=== PATIENT | female | born 1950 | race Two or more races ===

== ENCOUNTER 2019-03-29 08:57 | Inpatient (IN) | payer MEDICARE ==
[~2019-03-29] VITALS: Ht 160 cm; Wt 89.0 kg
[2019-03-29] MEDS ORDERED: ACETAMINOPHEN 500 MG TABLET PO ONE (09:45)
[2019-03-29] MEDS ORDERED: ONDANSETRON PF 4 MG/2 ML VIAL. IV ONE (09:45)
--- NOTE | 2019-03-29 10:18 | PHYS DOC ---
Past Medical History Past Medical History: Cancer Past Surgical History: Cancer Surgery, Hysterectomy, Knee Replacement Alcohol Use: None Drug Use: None Adult General Chief Complaint Chief Complaint: ABDOMINAL PAIN HPI HPI Patient is a 68 year old f p/w cc of abdo pain lower abdomen felt like constipated had a bm darker color than she is used to mild nausea was upstairs here caring for mom, got a little dizzy and lightheaded had bowel movement currently lower abdo discomfort mild only slowly getting better. endorses intermittent chest discomfort and sob with exertion for months " i was trying to ingore it" Review of Systems Review of Systems Constitutional: Denies fever or chills [] Eyes: Denies change in visual acuity, redness, or eye pain [] HENT: Denies nasal congestion or sore throat [] Respiratory: sob with exertion on and off for months. Musculoskeletal: Neurologic: Denies headache, focal weakness or sensory changes [] All other systems were reviewed and found to be within normal limits, except as documented in this note. Current Medications Current Medications Current Medications Medications (Trade) Dose Ordered Sig/Arthur Start Time Stop Time Status Last Admin Dose Admin Acetaminophen (Tylenol) 1,000 mg 1X ONCE 03/29/19 09:45 03/29/19 09:52 DC 03/29/19 10:12 1,000 MG Ondansetron HCl (Zofran) 4 mg 1X ONCE 03/29/19 09:45 03/29/19 09:52 DC 03/29/19 10:12 4 MG Allergies Allergies Allergies Coded Allergies Type Severity Reaction Last Updated Verified adhesive Allergy Unknown 03/29/19 Yes bacitracin Allergy Unknown 03/29/19 Yes cephalexin Allergy Unknown 03/29/19 Yes clarithromycin Allergy Unknown 03/29/19 Yes escitalopram Allergy Unknown 03/29/19 Yes lidocaine Allergy Unknown 03/29/19 Yes lisinopril Allergy Unknown 03/29/19 Yes neomycin Allergy Unknown 03/29/19 Yes polymyxin B Allergy Unknown 03/29/19 Yes pramoxine Allergy Unknown 03/29/19 Yes Physical Exam Physical Exam Constitutional: Well developed, well nourished, no acute distress, non-toxic appearance. [] HENT: Normocephalic, atraumatic, bilateral external ears normal, oropharynx moist, no oral exudates, nose normal. [] Eyes: PERRLA, EOMI, conjunctiva normal, no discharge. [] Neck: Normal range of motion, no tenderness, supple, no stridor. [] Cardiovascular:Heart rate regular rhythm, no murmur [] Lungs & Thorax: Bilateral breath sounds clear to auscultation [] Abdomen: Bowel sounds normal, soft, mild llq tenderness, no masses, no pulsatile masses. [] rectal external hemorrohid noted, there is brown stool trace on glove then later in er course pt had moderate sized melena noted. Skin: Warm, dry, no erythema, no rash. [] Back: No tenderness, no CVA tenderness. [] Extremities: No tenderness, no cyanosis, no clubbing, ROM intact, no edema. [] Neurologic: Alert and oriented X 3, normal motor function, normal sensory function, no focal deficits noted. [] Psychologic: Affect normal, judgement normal, mood normal. [] Current Patient Data Vital Signs Vital Signs Date Time Temp Pulse Resp B/P (MAP) Pulse Ox O2 Delivery O2 Flow Rate FiO2 03/29/19 09:37 97.9 78 18 101/56 (71) 91 Room Air 97.9 Lab Values Laboratory Tests Test 03/29/19 10:27 White Blood Count 9.1 x10^3/uL (4.0-11.0) Red Blood Count 4.07 x10^6/uL (3.50-5.40) Hemoglobin 12.9 g/dL (12.0-15.5) Hematocrit 38.6 % (36.0-47.0) Mean Corpuscular Volume 95 fL (79-100) Mean Corpuscular Hemoglobin 32 pg (25-35) Mean Corpuscular Hemoglobin Concent 33 g/dL (31-37) Red Cell Distribution Width 12.9 % (11.5-14.5) Platelet Count 245 x10^3/uL (140-400) Neutrophils (%) (Auto) 75 % (31-73) H Lymphocytes (%) (Auto) 16 % (24-48) L Monocytes (%) (Auto) 6 % (0-9) Eosinophils (%) (Auto) 2 % (0-3) Basophils (%) (Auto) 1 % (0-3) Neutrophils # (Auto) 6.9 x10^3/uL (1.8-7.7) Lymphocytes # (Auto) 1.5 x10^3/uL (1.0-4.8) Monocytes # (Auto) 0.6 x10^3/uL (0.0-1.1) Eosinophils # (Auto) 0.1 x10^3/uL (0.0-0.7) Basophils # (Auto) 0.1 x10^3/uL (0.0-0.2) Sodium Level 137 mmol/L (136-145) Potassium Level 4.7 mmol/L (3.5-5.1) Chloride Level 101 mmol/L (98-107) Carbon Dioxide Level 28 mmol/L (21-32) Anion Gap 8 (6-14) Blood Urea Nitrogen 46 mg/dL (7-20) H Creatinine 0.9 mg/dL (0.6-1.0) Estimated GFR (Cockcroft-Gault) 62.3 BUN/Creatinine Ratio 51 (6-20) H Glucose Level 98 mg/dL (70-99) Calcium Level 9.0 mg/dL (8.5-10.1) Total Bilirubin 0.6 mg/dL (0.2-1.0) Aspartate Amino Transferase (AST) 20 U/L (15-37) Alanine Aminotransferase (ALT) 21 U/L (14-59) Alkaline Phosphatase 66 U/L (46-116) Troponin I Quantitative 0.346 ng/mL (0.000-0.055) Total Protein 6.8 g/dL (6.4-8.2) Albumin 3.9 g/dL (3.4-5.0) Albumin/Globulin Ratio 1.3 (1.0-1.7) Lipase 136 U/L (73-393) Laboratory Tests 03/29/19 10:27 Laboratory Tests 03/29/19 10:27 EKG EKG []nsr rate normal no ischemia no stemi. Radiology/Procedures Radiology/Procedures [] Impressions: The lungs and pleural margins are clear. There is no mediastinal or hilar lymphadenopathy. The thoracic aorta appears normal. Impression: 1. No evidence of pulmonary embolism. 2. No significant findings. End impression CT Abdomen with contrast: Findings: Liver: Unremarkable Spleen: Unremarkable Pancreas: Unremarkable Adrenal Glands: Unremarkable Kidneys: Unremarkable There is no mass or lymphadenopathy. There is no free air. There is no free fluid. Impression: No acute findings. End Impression CT Pelvis with Contrast: Findings: The appendix is normal. There is moderate sigmoid diverticulosis without surrounding inflammation. The urinary bladder appears normal. There is no free fluid. There is no lymphadenopathy. Impression: No acute findings. PQRS Compliance Statement: One or more of the following individualized dose reduction techniques were utilized for this examination: 1. Automated exposure control 2. Adjustment of the mA and/or kV according to patient size 3. Use of iterative reconstruction technique Electronically signed by: Estefanía Levine III, MD (03/29/2019 12:46 PM) [facility] DICTATED and SIGNED BY: ESTEFANÍA LEVINE III, MD DATE: 03/29/19 1241 Course & Med Decision Making Course & Med Decision Making Pertinent Labs and Imaging studies reviewed. (See chart for details) []60-year-old female with a prior episode of breast cancer not currently on treatment for that hypertension hypothyroidism presenting after a episode of lightheadedness with some nausea and lower abdominal discomfort had episode of melena in the emergency room EKG normal blood pressure greater than [address] chest abdomen pelvis was negative acute. There is diverticulosis on CT scan. Patient did have oxygen saturation in the mid to high 80s 86- 88% on room air, patient is a smoker no pe seen. noted trop could be strain from the gi bleed, could be takutsubo? given caring for sick mother in hospital. given gi bleed will hold off on anticoagulation at this time. d/w anne-marie shannon ordered protonix iv fluids type and screen. Dragon Disclaimer Dragon Disclaimer This electronic medical record was generated, in whole or in part, using a voice recognition dictation system. Departure Departure Impression: Primary Impression: NSTEMI (non-ST elevated myocardial infarction) Additional Impression: GI bleed Disposition: ADMITTED INPATIENT Admitting Physician: HIMS Condition: GUARDED Referrals: NO PCP (PCP) Problem Qualifiers SHONNA DELUNA MD Mar 29, 2019 10:18
[2019-03-29 10:39] LABS: BASO # 0.1 x10^3/uL (0.0-0.2); BASO % 1 % (0-3); EOS # 0.1 x10^3/uL (0.0-0.7); EOS % 2 % (0-3); HEMATOCRIT 38.6 % (36.0-47.0); HEMOGLOBIN 12.9 g/dL (12.0-15.5); LYMPH # 1.5 x10^3/uL (1.0-4.8); LYMPH % 16 % (24-48); MEAN CORPUSCULAR HEMOGLOBIN 32 pg (25-35); MEAN CORPUSCULAR HGB CONC 33 g/dL (31-37); MEAN CORPUSCULAR VOLUME 95 fL (79-100); MONO # 0.6 x10^3/uL (0.0-1.1); MONO % 6 % (0-9); NEUT # 6.9 x10^3/uL (1.8-7.7); NEUT % 75 % (31-73); PLATELET COUNT 245 x10^3/uL (140-400); RED BLOOD COUNT 4.07 x10^6/uL (3.50-5.40); RED CELL DISTRIBUTION WIDTH 12.9 % (11.5-14.5); WHITE BLOOD COUNT 9.1 x10^3/uL (4.0-11.0)
[2019-03-29 11:02] LABS: CREATININE 0.9 mg/dL (0.6-1.0); GFR 62.3; POTASSIUM 4.7 mmol/L (3.5-5.1)
[2019-03-29 11:08] LABS: BILIRUBIN,URINE NEGATIVE (NEG); CLARITY,URINE CLEAR; COLOR,URINE YELLOW; NITRITE,URINE NEGATIVE (NEG); PROTEIN,URINE NEGATIVE (NEG-TRACE); UROBILINOGEN,URINE 0.2 mg/dL (0.2 mg/dL)
[2019-03-29 11:08] LABS: ALBUMIN 3.9 g/dL (3.4-5.0); ALBUMIN/GLOBULIN RATIO 1.3 (1.0-1.7); TOTAL BILIRUBIN 0.6 mg/dL (0.2-1.0); TOTAL PROTEIN 6.8 g/dL (6.4-8.2)
[2019-03-29 11:17] LABS: HYALINE CASTS, URINE MODERATE /HPF; SQUAMOUS EPITHELIAL CELL,UR MANY /LPF
[2019-03-29 11:18] LABS: BACTERIA,URINE MANY /HPF (0-FEW)
[2019-03-29] MEDS ORDERED: IV NORMAL SALINE 1000ML BAG 1,000 ML IV ONE (12:00)
[2019-03-29] MEDS ORDERED: PANTOPRAZOLE IV PUSH 40 MG VIAL. IVP ONE (12:00)
[2019-03-29] MEDS: PANTOPRAZOLE SODIUM IV DRIP 80 MG in IV NORMAL SALINE 100ML 100 ML IV SCH ×2 (12:00→21:42)
[2019-03-29 12:09] LABS: FECAL OB PT POSITIVE (NEG)
[2019-03-29] MEDS ORDERED: CONTRAST GIVEN. MC PRN (12:15)
[2019-03-29] MEDS ORDERED: IOHEXOL 350 MG/ML 100 ML VIAL. IV ONE (12:15)
[2019-03-29] MEDS ORDERED: fentaNYL PF VIAL 100 MCG/2 ML VIAL IV PRN (12:30)
--- NOTE | 2019-03-29 12:49 | RAD ---
CTA Chest and CT abdomen and pelvis with contrast: Clinical History: Chest pain and lower abdominal pain. Axial helical images of the chest abdomen and pelvis were obtained after the administration of 90 cc of IV Omni 350 contrast. Oral contrast was not utilized. CTA chest with contrast: Images of the chest were timed appropriately for a pulmonary arterial study. Conventional axial reconstruction was performed in addition to coronal, sagittal and bilateral oblique MIP (maximum intensity projection). This study was ordered to detect possible pulmonary embolism. FINDINGS: There are no filling defects to suggest pulmonary embolism. The lungs and pleural margins are clear. There is no mediastinal or hilar lymphadenopathy. The thoracic aorta appears normal. Impression: 1. No evidence of pulmonary embolism. 2. No significant findings. End impression CT Abdomen with contrast: Findings: Liver: Unremarkable Spleen: Unremarkable Pancreas: Unremarkable Adrenal Glands: Unremarkable Kidneys: Unremarkable There is no mass or lymphadenopathy. There is no free air. There is no free fluid. Impression: No acute findings. End Impression CT Pelvis with Contrast: Findings: The appendix is normal. There is moderate sigmoid diverticulosis without surrounding inflammation. The urinary bladder appears normal. There is no free fluid. There is no lymphadenopathy. Impression: No acute findings. PQRS Compliance Statement: One or more of the following individualized dose reduction techniques were utilized for this examination: 1. Automated exposure control 2. Adjustment of the mA and/or kV according to patient size 3. Use of iterative reconstruction technique Electronically signed by: Chris Levine III, MD (03/29/2019 12:46 PM) [facility]
--- NOTE | 2019-03-29 13:19 | PDOC1 ---
History and Physical Date of Admission Date of Admission DATE: 03/29/19 TIME: 13:10 Identification/Chief Complaint Chief Complaint Abdominal pain Source Source: Chart review, Patient History of Present Illness History of Present Illness Ms Jones is a 68yo F w/ PMHx hypothyroidism, HTN, right breast cancer 2011 in remission (s/p lumpectomy x2, radiation, and chemotherapy) who p/w abdominal pain in periumbilical area and left lower quadrant while visiting another patient here in the hospital she felt this upon awakening. Has associated nausea, dizziness, lightheadedness and notes melanotic stools as of this morning. Pain is colicky in waves in her suprapubic area radiating into her lower back and into her epigastrium. Notes this began while she was caring for her mother currently here at [facility]. She does take ASA and naproxen 550mg. In ED notably had negative CT Chest/abdomen/pelvis with contrast. Has troponin 0.346, BUN 46 and fecal occult positive. Otherwise CBC and CMP were WNL. EKG NSR, no ischemic findings. She was started on IV protonix, placed NPO with GI and cardiology consulted and will be admitted for further workup and care in the ICU. Past Medical History Cardiovascular: HTN Pulmonary: No pertinent hx GI: No pertinent hx Heme/Onc: Cancer (right breast cancer 2011 in remission (s/p lumpectomy x2, radiation, and chemotherapy)) Hepatobiliary: No pertinent hx Psych: No pertinent hx Rheumatologic: No pertinent hx Infectious disease: No pertinent hx ENT: No pertinent hx Endocrine: Hypothyroidism Dermatology: No pertinent hx Past Surgical History Past Surgical History: Breast Biopsy, Total hip replacement (Right hip), Tubal Ligation, Hysterectomy Family History Family History: High Cholestrol, Hypertension Social History Smoke: No ALCOHOL: none Drugs: None Current Medications Current Medications Current Medications Acetaminophen (Tylenol) 1,000 mg 1X ONCE PO Last administered on 03/29/19at 10:12; Start 03/29/19 at 09:45; Stop 03/29/19 at 09:52; Status DC Ondansetron HCl (Zofran) 4 mg 1X ONCE IV Last administered on 03/29/19at 10:12; Start 03/29/19 at 09:45; Stop 03/29/19 at 09:52; Status DC Pantoprazole Sodium 80 mg/ Sodium Chloride 100 ml @ 10 mls/hr Q10H IV Last administered on 03/29/19at 12:00; Start 03/29/19 at 12:00 Pantoprazole Sodium (PROTONIX VIAL for IV PUSH) 40 mg 1X ONCE IVP Last administered on 03/29/19at 12:00; Start 03/29/19 at 12:00; Stop 03/29/19 at 12:01; Status DC Sodium Chloride 1,000 ml @ 1,000 mls/hr 1X ONCE IV Last administered on 03/29/19at 12:00; Start 03/29/19 at 12:00; Stop 03/29/19 at 12:59; Status DC Iohexol (Omnipaque 350 Mg/ml) 90 ml 1X ONCE IV Last administered on 03/29/19at 12:37; Start 03/29/19 at 12:15; Stop 03/29/19 at 12:16; Status DC Info (CONTRAST GIVEN -- Rx MONITORING) 1 each PRN DAILY PRN MC SEE COMMENTS; Start 03/29/19 at 12:15; Stop 03/31/19 at 12:14 Fentanyl Citrate (Fentanyl 2ml Vial) 50 mcg PRN Q1HR PRN IV PAIN; Start 03/29/19 at 12:30; Stop 03/30/19 at 12:29 Sodium Chloride 1,000 ml @ 75 mls/hr [id number] IV ; Start 03/29/19 at 12:29; Stop 03/30/19 at 12:28 Allergies Allergies: Coded Allergies: adhesive (Verified Allergy, Unknown, 03/29/19) bacitracin (Verified Allergy, Unknown, 03/29/19) cephalexin (Verified Allergy, Unknown, 03/29/19) clarithromycin (Verified Allergy, Unknown, 03/29/19) escitalopram (Verified Allergy, Unknown, 03/29/19) lidocaine (Verified Allergy, Unknown, 03/29/19) lisinopril (Verified Allergy, Unknown, 03/29/19) neomycin (Verified Allergy, Unknown, 03/29/19) polymyxin B (Verified Allergy, Unknown, 03/29/19) pramoxine (Verified Allergy, Unknown, 03/29/19) ROS General: YES: Fatigue, Malaise, Appetite; No: Chills, Night Sweats, Other PSYCHOLOGICAL ROS: No: Anxiety, Behavioral Disorder, Concentration difficultie, Decreased libido, Depression, Disorientation, Hallucinations, Hostility, Irritablity, Memory difficulties, Mood Swings, Obsessive thoughts, Physical abuse, Sexual abuse, Sleep disturbances, Suicidal ideation, Other Eyes: No Blurry vision, No Decreased vision, No Double vision, No Dry eyes, No Excessive tearing, No Eye Pain, No Itchy Eyes, No Loss of vision, No Photo phobia, No Scotomata, No Uses contacts, No Uses glasses, No Other HEENT: No: Heacaches, Visual Changes, Hearing change, Nasal congestion, Nasal discharge, Oral lesions, Sinus pain, Sore Throat, Epistaxis, Sneezing, Snoring, Tinnitus, Vertigo, Vocal changes, Other ALLERGY AND IMMUNOLOGY: No: Hives, Insect Bite Sensitivity, Itchy/Watery Eyes, Nasal Congestion, Post Nasal Drip, Seasonal Allergies, Other Hematological and Lymphatic: No: Bleeding Problems, Blood Clots, Blood Transfusions, Brusing, Night Sweats, Pallor, Swollen Lymph Nodes, Other ENDOCRINE: No: Breast Changes, Galactorrhea, Hair Pattern Changes, Hot Flashes, Malaise/lethargy, Mood Swings, Palpitations, Polydipsia/polyuria, Skin Changes, Temperature Intolerance, Unexpected Weight Changes, Other Breast: No New/Changing Breast Lumps, No Nipple changes, No Nipple discharge, No Other Respiratory: No: Cough, Hemoptysis, Orthopnea, Pleuritic Pain, Shortness of breath, SOB with excertion, Sputum Changes, Stridor, Tachypnea, Wheezing, Other Cardiovascular: No Chest Pain, No Palpitations, No Orthopnea, No Paroxysmal Noc. Dyspnea, No Edema, No Lt Headedness, No Other Gastrointestinal: Yes Nausea, Yes Abdominal Pain, Yes Melena; No Vomiting, No Diarrhea, No Constipation, No Hematochezia, No Other Genitourinary: No Dysuria, No Frequency, No Incontinence, No Hematuria, No Retention, No Discharge, No Urgency, No Pain, No Flank Pain, No Other, No , No , No , No , No , No , No Musculoskeletal: No Gait Disturbance, No Joint Pain, No Joint Stiffness, No Joint Swelling, No Muscle Pain, No Muscular Weakness, No Pain In:, No Swelling In:, No Other Neurological: No Behavorial Changes, No Bowel/Bladder ControlChng, No Confusion, No Dizziness, No Gait Disturbance, No Headaches, No Impaired Coord/balance, No Memory Loss, No Numbness/Tingling, No Seizures, No Speech Problems, No Tremors, No Visual Changes, No Weakness, No Other Skin: No Dry Skin, No Eczema, No Hair Changes, No Lumps, No Mole Changes, No Mo ttling, No Nail Changes, No Pruritus, No Rash, No Skin Lesion Changes, No Other, No Acne Physical Exam General: Alert, Oriented X3, Cooperative, No acute distress HEENT: Atraumatic, PERRLA, EOMI, Mucous membr. moist/pink Lungs: Clear to auscultation, Normal air movement Heart: S1S2, RRR, no thrills, no rubs, no gallops, no murmurs Abdomen: Normal bowel sounds, Soft, No hepatosplenomegaly, No masses, Other (epigastric and suprapubic tenderness) Rectal Exam: other (no hemorrhoids or masses, dark melanotic stool) Extremities: No clubbing, No cyanosis, No edema, Normal pulses, No tenderness/swelling Skin: No rashes, No breakdown, No significant lesion Neuro: Normal gait, Normal speech, Strength at 5/5 X4 ext, Normal tone, Sensation intact, Cranial nerves 3-12 NL, Reflexes 2+ Psych/Mental Status: Mental status NL, Mood NL Vitals Vitals Vital Signs Date Time Temp Pulse Resp B/P (MAP) Pulse Ox O2 Delivery O2 Flow Rate FiO2 03/29/19 09:37 97.9 78 18 101/56 (71) 91 Room Air 97.9 Labs Labs Laboratory Tests Test 03/29/19 10:27 03/29/19 10:35 03/29/19 11:52 White Blood Count 9.1 x10^3/uL (4.0-11.0) Red Blood Count 4.07 x10^6/uL (3.50-5.40) Hemoglobin 12.9 g/dL (12.0-15.5) Hematocrit 38.6 % (36.0-47.0) Mean Corpuscular Volume 95 fL (79-100) Mean Corpuscular Hemoglobin 32 pg (25-35) Mean Corpuscular Hemoglobin Concent 33 g/dL (31-37) Red Cell Distribution Width 12.9 % (11.5-14.5) Platelet Count 245 x10^3/uL (140-400) Neutrophils (%) (Auto) 75 % (31-73) Lymphocytes (%) (Auto) 16 % (24-48) Monocytes (%) (Auto) 6 % (0-9) Eosinophils (%) (Auto) 2 % (0-3) Basophils (%) (Auto) 1 % (0-3) Neutrophils # (Auto) 6.9 x10^3/uL (1.8-7.7) Lymphocytes # (Auto) 1.5 x10^3/uL (1.0-4.8) Monocytes # (Auto) 0.6 x10^3/uL (0.0-1.1) Eosinophils # (Auto) 0.1 x10^3/uL (0.0-0.7) Basophils # (Auto) 0.1 x10^3/uL (0.0-0.2) Sodium Level 137 mmol/L (136-145) Potassium Level 4.7 mmol/L (3.5-5.1) Chloride Level 101 mmol/L (98-107) Carbon Dioxide Level 28 mmol/L (21-32) Anion Gap 8 (6-14) Blood Urea Nitrogen 46 mg/dL (7-20) Creatinine 0.9 mg/dL (0.6-1.0) Estimated GFR (Cockcroft-Gault) 62.3 BUN/Creatinine Ratio 51 (6-20) Glucose Level 98 mg/dL (70-99) Calcium Level 9.0 mg/dL (8.5-10.1) Total Bilirubin 0.6 mg/dL (0.2-1.0) Aspartate Amino Transf (AST/SGOT) 20 U/L (15-37) Alanine Aminotransferase (ALT/SGPT) 21 U/L (14-59) Alkaline Phosphatase 66 U/L (46-116) Troponin I Quantitative 0.346 ng/mL (0.000-0.055) Total Protein 6.8 g/dL (6.4-8.2) Albumin 3.9 g/dL (3.4-5.0) Albumin/Globulin Ratio 1.3 (1.0-1.7) Lipase 136 U/L (73-393) Urine Collection Type Unknown Urine Color Yellow Urine Clarity Clear Urine pH 6.0 Urine Specific [place] 1.020 Urine Protein Negative mg/dL (NEG-TRACE) Urine Glucose (UA) Negative mg/dL (NEG) Urine Ketones (Stick) Negative mg/dL (NEG) Urine Blood Negative (NEG) Urine Nitrite Negative (NEG) Urine Bilirubin Negative (NEG) Urine Urobilinogen Dipstick 0.2 mg/dL (0.2 mg/dL) Urine Leukocyte Esterase Trace (NEG) Urine RBC 1-2 /HPF (0-2) Urine WBC 1-4 /HPF (0-4) Urine Squamous Epithelial Cells Many /LPF Urine Bacteria Many /HPF (0-FEW) Urine Hyaline Casts Moderate /HPF Urine Mucus Mod /LPF Stool Occult Blood Positive (NEG) Laboratory Tests Test 03/29/19 10:27 03/29/19 10:35 03/29/19 11:52 White Blood Count 9.1 x10^3/uL (4.0-11.0) Red Blood Count 4.07 x10^6/uL (3.50-5.40) Hemoglobin 12.9 g/dL (12.0-15.5) Hematocrit 38.6 % (36.0-47.0) Mean Corpuscular Volume 95 fL (79-100) Mean Corpuscular Hemoglobin 32 pg (25-35) Mean Corpuscular Hemoglobin Concent 33 g/dL (31-37) Red Cell Distribution Width 12.9 % (11.5-14.5) Platelet Count 245 x10^3/uL (140-400) Neutrophils (%) (Auto) 75 % (31-73) Lymphocytes (%) (Auto) 16 % (24-48) Monocytes (%) (Auto) 6 % (0-9) Eosinophils (%) (Auto) 2 % (0-3) Basophils (%) (Auto) 1 % (0-3) Neutrophils # (Auto) 6.9 x10^3/uL (1.8-7.7) Lymphocytes # (Auto) 1.5 x10^3/uL (1.0-4.8) Monocytes # (Auto) 0.6 x10^3/uL (0.0-1.1) Eosinophils # (Auto) 0.1 x10^3/uL (0.0-0.7) Basophils # (Auto) 0.1 x10^3/uL (0.0-0.2) Sodium Level 137 mmol/L (136-145) Potassium Level 4.7 mmol/L (3.5-5.1) Chloride Level 101 mmol/L (98-107) Carbon Dioxide Level 28 mmol/L (21-32) Anion Gap 8 (6-14) Blood Urea Nitrogen 46 mg/dL (7-20) Creatinine 0.9 mg/dL (0.6-1.0) Estimated GFR (Cockcroft-Gault) 62.3 BUN/Creatinine Ratio 51 (6-20) Glucose Level 98 mg/dL (70-99) Calcium Level 9.0 mg/dL (8.5-10.1) Total Bilirubin 0.6 mg/dL (0.2-1.0) Aspartate Amino Transf (AST/SGOT) 20 U/L (15-37) Alanine Aminotransferase (ALT/SGPT) 21 U/L (14-59) Alkaline Phosphatase 66 U/L (46-116) Troponin I Quantitative 0.346 ng/mL (0.000-0.055) Total Protein 6.8 g/dL (6.4-8.2) Albumin 3.9 g/dL (3.4-5.0) Albumin/Globulin Ratio 1.3 (1.0-1.7) Lipase 136 U/L (73-393) Urine Collection Type Unknown Urine Color Yellow Urine Clarity Clear Urine pH 6.0 Urine Specific [place] 1.020 Urine Protein Negative mg/dL (NEG-TRACE) Urine Glucose (UA) Negative mg/dL (NEG) Urine Ketones (Stick) Negative mg/dL (NEG) Urine Blood Negative (NEG) Urine Nitrite Negative (NEG) Urine Bilirubin Negative (NEG) Urine Urobilinogen Dipstick 0.2 mg/dL (0.2 mg/dL) Urine Leukocyte Esterase Trace (NEG) Urine RBC 1-2 /HPF (0-2) Urine WBC 1-4 /HPF (0-4) Urine Squamous Epithelial Cells Many /LPF Urine Bacteria Many /HPF (0-FEW) Urine Hyaline Casts Moderate /HPF Urine Mucus Mod /LPF Stool Occult Blood Positive (NEG) Images Images CT chest with contrast - There are no filling defects to suggest pulmonary embolism. The lungs and pleural margins are clear. There is no mediastinal or hilar lymphadenopathy. The thoracic aorta appears normal. Impression: 1. No evidence of pulmonary embolism. 2. No significant findings. CT Abdomen with contrast: Liver: Unremarkable Spleen: Unremarkable Pancreas: Unremarkable Adrenal Glands: Unremarkable Kidneys: Unremarkable There is no mass or lymphadenopathy. There is no free air. There is no free fluid. Impression: No acute findings. CT Pelvis with Contrast: The appendix is normal. There is moderate sigmoid diverticulosis without surrounding inflammation. The urinary bladder appears normal. There is no free fluid. There is no lymphadenopathy. Impression: No acute findings. VTE Prophylaxis Ordered VTE Prophylaxis Devices: Yes VTE Pharmacological Prophylaxi: Contraindicated Assessment/Plan Assessment/Plan A/P: Melanotic stool - concerning with elevated BUN and abdominal pain she may have an occult UGIB, consulted GI. NPO, IV protonix GTT. ICU admit. Hold blood thinners Uremia - as above likely from UGIB, may be dehydrated as well, will order IVF Elevated troponin - will trend. Likely demand ischemia possibly from GI bleed. Cardiology consulted by ED Hypothyroidism - acquired, on 75mcg levothyroxine HTN - cont meds Right breast cancer 2011 - in remission (s/p lumpectomy x2, radiation, and chemotherapy) FEN - NPO. If no procedures planned tonight I am ok with clear liquid diet, patient requests melissa childress PPX - Protonix GTT FULL CODE Dispo - ICU for concern for UGIB JEAN-PAUL RIVERA MD Mar 29, 2019 13:19
[2019-03-29 13:47] VITALS: BP 122/73
[2019-03-29] MEDS ORDERED: SIMV20TA3 PO (14:39)
[2019-03-29] MEDS ORDERED: LOSA1TAB19 PO (14:39)
[2019-03-29] MEDS ORDERED: SERT100T PO (14:39)
[2019-03-29] MEDS ORDERED: LEVO75TA5 PO (14:39)
[2019-03-29] MEDS ORDERED: LORA10TA3 PO (14:39)
[2019-03-29] MEDS ORDERED: NAPR500T8 PO (14:39)
[2019-03-29 15:00] VITALS: BP 115/64
[2019-03-29] MEDS ORDERED: ONDANSETRON PF 4 MG/2 ML VIAL. IVP PRN (15:00)
[2019-03-29] MEDS ORDERED: MORPHINE SULFATE 2 MG/ML VIAL. IV PRN (15:00)
--- NOTE | 2019-03-29 15:20 | PDOC2 ---
GI CONSULT Reason For Consult: heme positive stool HPI: HPI: 68yo F w/ PMHx hypothyroidism, HTN, right breast cancer 2011 in remission (s/p lumpectomy x2, radiation, and chemotherapy) who p/w abdominal pain in periumbilical area and left lower quadrant while visiting another patient here in the hospital she felt this upon awakening. Has associated nausea, dizziness, lightheadedness and notes melanotic stools as of this morning. Pain is colicky in waves in her suprapubic area radiating into her lower back and into her epigastrium. Notes this began while she was caring for her mother currently here at [facility]. She does take ASA and naproxen 550mg since her hip replacement 04/2018. She takes the Naproxen 1-2 times daily In ED notably had negative CT Chest/abdomen/pelvis with contrast. Has troponin 0.346, BUN 46 and fecal occult positive. Otherwise CBC and CMP were WNL. EKG NSR, no ischemic findings. She was started on IV protonix, placed NPO with GI and cardiology consulted and will be admitted for further workup and care in the ICU. PMH: PMH: Past Medical History Cardiovascular: HTN Pulmonary: No pertinent hx GI: Colon polyps on colonoscopy with Dr Rehana Beauchamp/Onc: Cancer (right breast cancer 2011 in remission (s/p lumpectomy x2, radiation, and chemotherapy)) Hepatobiliary: No pertinent hx Psych: No pertinent hx Rheumatologic: No pertinent hx Infectious disease: No pertinent hx ENT: No pertinent hx Endocrine: Hypothyroidism Dermatology: No pertinent hx Past Surgical History Past Surgical History: Breast Biopsy, Total hip replacement (Right hip), Tubal Ligation, Hysterectomy Family History Family History: High Cholestrol, Hypertension Social History Smoke: No ALCOHOL: none Drugs: None Current Medications Current Medications Current Medications Acetaminophen (Tylenol) 1,000 mg 1X ONCE PO Last administered on 03/29/19at 10:12; Start 03/29/19 at 09:45; Stop 03/29/19 at 09:52; Status DC Ondansetron HCl (Zofran) 4 mg 1X ONCE IV Last administered on 03/29/19at 10:12; Start 03/29/19 at 09:45; Stop 03/29/19 at 09:52; Status DC Pantoprazole Sodium 80 mg/ Sodium Chloride 100 ml @ 10 mls/hr Q10H IV Last administered on 03/29/19at 12:00; Start 03/29/19 at 12:00 Pantoprazole Sodium (PROTONIX VIAL for IV PUSH) 40 mg 1X ONCE IVP Last administered on 03/29/19at 12:00; Start 03/29/19 at 12:00; Stop 03/29/19 at 12:01; Status DC Sodium Chloride 1,000 ml @ 1,000 mls/hr 1X ONCE IV Last administered on 03/29/19at 12:00; Start 03/29/19 at 12:00; Stop 03/29/19 at 12:59; Status DC Iohexol (Omnipaque 350 Mg/ml) 90 ml 1X ONCE IV Last administered on 03/29/19at 12:37; Start 03/29/19 at 12:15; Stop 03/29/19 at 12:16; Status DC Info (CONTRAST GIVEN -- Rx MONITORING) 1 each PRN DAILY PRN MC SEE COMMENTS; Start 03/29/19 at 12:15; Stop 03/31/19 at 12:14 Fentanyl Citrate (Fentanyl 2ml Vial) 50 mcg PRN Q1HR PRN IV PAIN; Start 03/29/19 at 12:30; Stop 03/30/19 at 12:29 Sodium Chloride 1,000 ml @ 75 mls/hr [id number] IV ; Start 03/29/19 at 12:29; Stop 03/30/19 at 12:28 Allergies Allergies: Coded Allergies: adhesive (Verified Allergy, Unknown, 03/29/19) bacitracin (Verified Allergy, Unknown, 03/29/19) cephalexin (Verified Allergy, Unknown, 03/29/19) clarithromycin (Verified Allergy, Unknown, 03/29/19) escitalopram (Verified Allergy, Unknown, 03/29/19) lidocaine (Verified Allergy, Unknown, 03/29/19) lisinopril (Verified Allergy, Unknown, 03/29/19) neomycin (Verified Allergy, Unknown, 03/29/19) polymyxin B (Verified Allergy, Unknown, 03/29/19) pramoxine (Verified Allergy, Unknown, 03/29/19) Social History: Smoke: No ALCOHOL: none Drugs: None ROS: ROS General: YES: Fatigue, Malaise, Appetite; No: Chills, Night Sweats, Other PSYCHOLOGICAL ROS: No: Anxiety, Behavioral Disorder, Concentration difficultie, Decreased libido, Depression, Disorientation, Hallucinations, Hostility, Irritablity, Memory difficulties, Mood Swings, Obsessive thoughts, Physical abuse, Sexual abuse, Sleep disturbances, Suicidal ideation, Other Eyes: No Blurry vision, No Decreased vision, No Double vision, No Dry eyes, No Excessive tearing, No Eye Pain, No Itchy Eyes, No Loss of vision, No Photophobia, No Scotomata, No Uses contacts, No Uses glasses, No Other HEENT: No: Heacaches, Visual Changes, Hearing change, Nasal congestion, Nasal discharge, Oral lesions, Sinus pain, Sore Throat, Epistaxis, Sneezing, Snoring, Tinnitus, Vertigo, Vocal changes, Other ALLERGY AND IMMUNOLOGY: No: Hives, Insect Bite Sensitivity, Itchy/Watery Eyes, Nasal Congestion, Post Nasal Drip, Seasonal Allergies, Other Hematological and Lymphatic: No: Bleeding Problems, Blood Clots, Blood Transfusions, Brusing, Night Sweats, Pallor, Swollen Lymph Nodes, Other ENDOCRINE: No: Breast Changes, Galactorrhea, Hair Pattern Changes, Hot Flashes, Malaise/lethargy, Mood Swings, Palpitations, Polydipsia/polyuria, Skin Changes, Temperature Intolerance, Unexpected Weight Changes, Other Breast: No New/Changing Breast Lumps, No Nipple changes, No Nipple discharge, No Other Respiratory: No: Cough, Hemoptysis, Orthopnea, Pleuritic Pain, Shortness of breath, SOB with excertion, Sputum Changes, Stridor, Tachypnea, Wheezing, Other Cardiovascular: No Chest Pain, No Palpitations, No Orthopnea, No Paroxysmal Noc. Dyspnea, No Edema, No Lt Headedness, No Other Gastrointestinal: Yes Nausea, Yes Abdominal Pain, Yes Melena; No Vomiting, No Diarrhea, No Constipation, No Hematochezia, No Other Genitourinary: No Dysuria, No Frequency, No Incontinence, No Hematuria, No Retention, No Discharge, No Urgency, No Pain, No Flank Pain, No Other, No , No , No , No , No , No , No Musculoskeletal: No Gait Disturbance, No Joint Pain, No Joint Stiffness, No Joint Swelling, No Muscle Pain, No Muscular Weakness, No Pain In:, No Swelling In:, No Other Neurological: No Behavorial Changes, No Bowel/Bladder ControlChng, No Confusion, No Dizziness, No Gait Disturbance, No Headaches, No Impaired Coord/balance, No Memory Loss, No Numbness/Tingling, No Seizures, No Speech Problems, No Tremors, No Visual Changes, No Weakness, No Other Skin: No Dry Skin, No Eczema, No Hair Changes, No Lumps, No Mole Changes, No Mottling, No Nail Changes, No Pruritus, No Rash, No Skin Lesion Changes, No Other, No Acne VItals: Vitals: Vital Signs Date Time Temp Pulse Resp B/P (MAP) Pulse Ox O2 Delivery O2 Flow Rate FiO2 03/29/19 14:41 Room Air 03/29/19 13:47 98.1 94 16 122/73 (89) 91 98.1 Labs: Labs: Laboratory Tests Test 03/29/19 10:27 03/29/19 10:35 03/29/19 11:52 White Blood Count 9.1 x10^3/uL (4.0-11.0) Red Blood Count 4.07 x10^6/uL (3.50-5.40) Hemoglobin 12.9 g/dL (12.0-15.5) Hematocrit 38.6 % (36.0-47.0) Mean Corpuscular Volume 95 fL (79-100) Mean Corpuscular Hemoglobin 32 pg (25-35) Mean Corpuscular Hemoglobin Concent 33 g/dL (31-37) Red Cell Distribution Width 12.9 % (11.5-14.5) Platelet Count 245 x10^3/uL (140-400) Neutrophils (%) (Auto) 75 % (31-73) Lymphocytes (%) (Auto) 16 % (24-48) Monocytes (%) (Auto) 6 % (0-9) Eosinophils (%) (Auto) 2 % (0-3) Basophils (%) (Auto) 1 % (0-3) Neutrophils # (Auto) 6.9 x10^3/uL (1.8-7.7) Lymphocytes # (Auto) 1.5 x10^3/uL (1.0-4.8) Monocytes # (Auto) 0.6 x10^3/uL (0.0-1.1) Eosinophils # (Auto) 0.1 x10^3/uL (0.0-0.7) Basophils # (Auto) 0.1 x10^3/uL (0.0-0.2) Sodium Level 137 mmol/L (136-145) Potassium Level 4.7 mmol/L (3.5-5.1) Chloride Level 101 mmol/L (98-107) Carbon Dioxide Level 28 mmol/L (21-32) Anion Gap 8 (6-14) Blood Urea Nitrogen 46 mg/dL (7-20) Creatinine 0.9 mg/dL (0.6-1.0) Estimated GFR (Cockcroft-Gault) 62.3 BUN/Creatinine Ratio 51 (6-20) Glucose Level 98 mg/dL (70-99) Calcium Level 9.0 mg/dL (8.5-10.1) Total Bilirubin 0.6 mg/dL (0.2-1.0) Aspartate Amino Transf (AST/SGOT) 20 U/L (15-37) Alanine Aminotransferase (ALT/SGPT) 21 U/L (14-59) Alkaline Phosphatase 66 U/L (46-116) Troponin I Quantitative 0.346 ng/mL (0.000-0.055) Total Protein 6.8 g/dL (6.4-8.2) Albumin 3.9 g/dL (3.4-5.0) Albumin/Globulin Ratio 1.3 (1.0-1.7) Lipase 136 U/L (73-393) Urine Collection Type Unknown Urine Color Yellow Urine Clarity Clear Urine pH 6.0 Urine Specific Buchtel 1.020 Urine Protein Negative mg/dL (NEG-TRACE) Urine Glucose (UA) Negative mg/dL (NEG) Urine Ketones (Stick) Negative mg/dL (NEG) Urine Blood Negative (NEG) Urine Nitrite Negative (NEG) Urine Bilirubin Negative (NEG) Urine Urobilinogen Dipstick 0.2 mg/dL (0.2 mg/dL) Urine Leukocyte Esterase Trace (NEG) Urine RBC 1-2 /HPF (0-2) Urine WBC 1-4 /HPF (0-4) Urine Squamous Epithelial Cells Many /LPF Urine Bacteria Many /HPF (0-FEW) Urine Hyaline Casts Moderate /HPF Urine Mucus Mod /LPF Stool Occult Blood Positive (NEG) Imaging: Imaging: PATIENT: TATIANNA DESHPANDE ACCOUNT: [id number] : 1950 LOCATION: [facility] ICU AGE: 68 SEX: F EXAM STATUS: ADM IN ORD. PHYSICIAN: SHONNA DELUNA MD REASON: Chest pain, r/o PE, lower abdo pain, evaluate for diverticulitis. PROCEDURE: CT ANGIO CHEST W ABD PEL W/ CTA Chest and CT abdomen and pelvis with contrast: Clinical History: Chest pain and lower abdominal pain. Axial helical images of the chest abdomen and pelvis were obtained after the administration of 90 cc of IV Omni 350 contrast. Oral contrast was not utilized. CTA chest with contrast: Images of the chest were timed appropriately for a pulmonary arterial study. Conventional axial reconstruction was performed in addition to coronal, sagittal and bilateral oblique MIP (maximum intensity projection). This study was ordered to detect possible pulmonary embolism. FINDINGS: There are no filling defects to suggest pulmonary embolism. The lungs and pleural margins are clear. There is no mediastinal or hilar lymphadenopathy. The thoracic aorta appears normal. Impression: 1. No evidence of pulmonary embolism. 2. No significant findings. End impression CT Abdomen with contrast: Findings: Liver: Unremarkable Spleen: Unremarkable Pancreas: Unremarkable Adrenal Glands: Unremarkable Kidneys: Unremarkable There is no mass or lymphadenopathy. There is no free air. There is no free fluid. Impression: No acute findings. End Impression CT Pelvis with Contrast: Findings: PE: Physical Exam General: Alert, Oriented X3, Cooperative, No acute distress HEENT: Atraumatic, PERRLA, EOMI, Mucous membr. moist/pink Lungs: Clear to auscultation, Normal air movement Heart: S1S2, RRR, no thrills, no rubs, no gallops, no murmurs Abdomen: Normal bowel sounds, Soft, No hepatosplenomegaly, No masses, Other (epigastric and suprapubic tenderness) Rectal Exam: other (no hemorrhoids or masses, dark melanotic stool) Extremities: No clubbing, No cyanosis, No edema, Normal pulses, No tenderness/swelling Skin: No rashes, No breakdown, No significant lesion Neuro: Normal gait, Normal speech, Strength at 5/5 X4 ext, Normal tone, Sensation intact, Cranial nerves 3-12 NL, Reflexes 2+ Psych/Mental Status: Mental status NL, Mood NL A/P: A/P: A) 1) Heme positive stool 2) Periumbilic abdominal pain P) 1) PPI gtts 2) Hold NSAIDs 3) EGD after elevated Troponin evaluated OSCAR SORIA MD Mar 29, 2019 15:20
[2019-03-29] MEDS: IV NORMAL SALINE 1000ML BAG 1,000 ML IV SCH (15:22)
--- NOTE | 2019-03-29 16:25 | PDOC2 ---
CARDIOLOGY CONSULT NOTE CHEIF COMPLAINT: Nearly passed out, passed dark stools HPI: 68 y.o woman with pmhx as noted below who presents to the ER with near syncope and black stools. She stated that she has been in her usual state of health until the last several weeks. At baseline she is able to do ADL's w/o any problems. Last few months she has had exertional dyspnea w/o angina. Denies any palpitations, orthopnea, PND or LE edema. She has not had any prior cardiac interventions. She has been here visiting her mother who is in the hospital and states that she has been extremely stressed the last few weeks with various psychosocial issues. This morning she had a near syncopal episode with lower abd pain and black stools and then sought care in the ER Initial EKG in the ER was unremarkable but due to heme+ stools, she was admitted for possible GIB evaluation. After admission, she has had some shortness of air and occ intermittent chest pain. PMHX: 1. Breast cancer in remission 2. Hip replacement 3. HTN 4. Dyslipidemia 5. Tobacco use SOCHX: She is a real estate sales associate. No alcohol or illicits. FAMHX: +CAD in her brother who has 9 stents and also PAD. CURRENT MEDS: Home meds: Simvastatin Losartan/HCTZ ALLERGIES: Allergies Coded Allergies Type Severity Reaction Last Updated Verified adhesive Allergy Unknown 03/29/19 Yes bacitracin Allergy Unknown 03/29/19 Yes cephalexin Allergy Unknown 03/29/19 Yes clarithromycin Allergy Unknown 03/29/19 Yes escitalopram Allergy Unknown 03/29/19 Yes lidocaine Allergy Unknown 03/29/19 Yes lisinopril Allergy Unknown 03/29/19 Yes neomycin Allergy Unknown 03/29/19 Yes polymyxin B Allergy Unknown 03/29/19 Yes pramoxine Allergy Unknown 03/29/19 Yes ROS: Negative unless otherwise noted above in HPI PHYSICAL EXAM: Vital Signs/I&O: Vital Signs Date Time Temp Pulse Resp B/P (MAP) Pulse Ox O2 Delivery O2 Flow Rate FiO2 03/29/19 15:22 20 91 Room Air 03/29/19 13:47 98.1 94 122/73 (89) 98.1 Physical Exam: GEN.: No apparent distress. Alert and oriented. HEENT: Head is normocephalic, atraumatic NECK: Supple. LUNGS: Clear to auscultation. HEART: RRR, S1, S2 present. Peripheral pulses intact ABDOMEN: Soft, nontender. Positive bowel sounds. EXTREMITIES: 2+ radial, 1+ pedal pulses NEUROLOGIC: Normal speech, normal tone PSYCHIATRIC: Normal affect, normal mood. SKIN: No ulcerations DIAGNOSTIC TESTING: Cr wnl Hgb 12.3 Trop 1.8 EKG: SR, no acute findings ASSESSMENT: 1. Chest pain - DDx is broad and could be related to ulcers versus angina. 2. NSTEMI - Consider takatsubo (stress induced) versus true plaque rupture 3. HTN 4. DLP 5. Tobacco abuse She has multiple risk factors that make her pretest probability high for coronary disease, nonetheless, at this time her presentation is also concerning for acute GIB. PLAN: 1. Given her acute possibility of GIB, I discussed with the patient about various approaches to the treatment of her NSTEMI. -We will discuss with Dr. Love and consider heparin challenge. If she has more signs of bleeding, then would hold anticoagulation, treat GIB with b-aiden and BP control and determine further evaluation after GI scopes. On the other hand, if after heparin challenge, her hgb remains stable, then could consider cath tomorrow. 2. Continue statin therapy. 3. Check echo. Thanks. MICHELE FORTUNE MD Mar 29, 2019 16:25
[2019-03-29] MEDS ORDERED: ANTI-COAG MONITOR BY PHARMACY. MC PRN (16:30)
[2019-03-29] MEDS ORDERED: hydrALAZINE 20 MG/ML VIAL. IVP PRN (16:30)
[2019-03-29] MEDS ORDERED: HEPARIN for IV BOLUS 10,000 UNIT/10 ML VIAL. IV PRN (16:30)
[2019-03-29] MEDS ORDERED: HEPARIN 25,000UTS/500ML PREMIX 500 ML IV PRN (16:30)
[2019-03-29] MEDS ORDERED: HEPARIN for IV BOLUS 10,000 UNIT/10 ML VIAL. IV ONE (17:45)
[2019-03-29] MEDS: METOPROLOL TART IMMED RELEASE 25 MG TABLET. PO SCH ×2 (18:13→23:24)
[2019-03-29 19:15] VITALS: BP 100/50
[2019-03-29] MEDS: SIMVASTATIN 20 MG TABLET PO SCH (21:42)
[2019-03-29 23:28] VITALS: BP 83/54
[2019-03-30] VITALS (8 sets, daily range): BP systolic 82–133; BP diastolic 47–72
[2019-03-30] MEDS: METOPROLOL TART IMMED RELEASE 25 MG TABLET. PO SCH ×4 (00:21→18:22)
[2019-03-30] MEDS: IV NORMAL SALINE 1000ML BAG 1,000 ML IV SCH (05:00)
[2019-03-30] MEDS: LEVOTHYROXINE 75 MCG TABLET PO SCH (06:30)
[2019-03-30] MEDS: PANTOPRAZOLE SODIUM IV DRIP 80 MG in IV NORMAL SALINE 100ML 100 ML IV SCH (07:50)
--- NOTE | 2019-03-30 08:23 | EKG ---
[address] [place] [address] Test Date: 2019-03-29 Test Time: 10:03:31 Pat Name: TATIANNA DESHPANDE Department: Room: Gender: F [employer] Measures Abstractor: : 1950 Requested By: SHONNA DELUNA Order Number: [id number] Reading MD: Measurements Intervals Whitman Rate: 81 P: 59 UT: 172 QRS: 53 QRSD: 84 T: 35 QT: 376 QTc: 442 Interpretive Statements SINUS RHYTHM NORMAL ECG No previous ECG available for comparison
[2019-03-30] MEDS ORDERED: hydroCHLOROthiazide 12.5 MG CAPSULE PO SCH (09:00)
[2019-03-30] MEDS: LOSARTAN POTASSIUM 50 MG TABLET. PO SCH (09:00)
[2019-03-30 09:29] LABS: HEMATOCRIT 29.7 % (36.0-47.0); HEMOGLOBIN 9.9 g/dL (12.0-15.5); RED BLOOD COUNT 3.1 x10^6/uL (3.50-5.40); RED CELL DISTRIBUTION WIDTH 12.9 % (11.5-14.5)
--- NOTE | 2019-03-30 11:19 | PDOC ---
Subjective: Subjective: Two black stools prior to admission. Had some lower abd discomfort - none now. Occasional nocturnal reflux, takes Tagamet PRN. EGD and colonoscopy long ago - denies h/o ulcers, recalls colon polyps, d iverticulosis, and hemorrhoids (w/ "ablation"). ASA PRN, Naproxen QD for knee and hip pain. Objective: Objective: D/w nurse and reviewed chart - on Heparin, to have heart cath this afternoon. Vital Signs: Vital Signs Date Time Temp Pulse Resp B/P (MAP) Pulse Ox O2 Delivery O2 Flow Rate FiO2 03/30/19 11:04 98.0 75 16 97/59 (72) 94 Room Air 98.0 03/30/19 08:00 1.0 Labs: Laboratory Tests Test 03/29/19 11:52 03/29/19 15:30 03/29/19 18:45 03/30/19 00:40 Stool Occult Blood Positive Troponin I Quantitative 1.881 ng/mL 3.206 ng/mL Heparin Anti-Xa Act, Unfractionated 0.35 IU/mL Test 03/30/19 09:05 White Blood Count 6.0 x10^3/uL Red Blood Count 3.10 x10^6/uL Hemoglobin 9.9 g/dL Hematocrit 29.7 % Mean Corpuscular Volume 96 fL Mean Corpuscular Hemoglobin 32 pg Mean Corpuscular Hemoglobin Concent 33 g/dL Red Cell Distribution Width 12.9 % Platelet Count 192 x10^3/uL Heparin Anti-Xa Act, Unfractionated 0.17 IU/mL Imaging: Echocardiogram 03/30 pending PE: GEN: NAD LUNGS: CTAB HEART: RRR ABD: NABS, S/ND/NT NEURO/PSYCH: A & O 3 A/P: Syncope, elevated troponin Anemia - Hgb 12.9 to 9.9 w/ Heparin, BUN elevated on admission, +Hemoccult Melena, lower abd pain - resolved Nocturnal reflux - takes H2 aiden PRN, recalls normal EGD years ago CRC screen, h/o polyps - colonoscopy years ago Diverticulosis Hemorrhoids NSAID use - Naproxen for knee and hip pain H/o breast cancer, hypothyroidism -- Plans for heart cath, await this. On PPI drip, continue for now. Blood type done. Check anemia parameters for completeness. UPDATE - spoke w/ Dr. Mendoza - failed Heparin challenge, favors EGD first. D/w Dr. Cheung - plan for EGD this evening at 5:00. Called to nurse. MIKY MONTES Mar 30, 2019 11:19
--- NOTE | 2019-03-30 11:29 | PDOC ---
Provider Note Provider Note Labs reviewed this morning. No chest pain. 3 unit Hgb drop with heparin challenge. Failed challenge Will stop heparin. She is at low risk for anesthesia and EGD. Will proceed with GI eval first. Thanks MICHELE FORTUNE MD Mar 30, 2019 11:29
[2019-03-30] MEDS: SERTRALINE 50 MG TABLET. PO SCH (12:25)
[2019-03-30] MEDS: CETIRIZINE HCL 10 MG TABLET. PO SCH (12:25)
[2019-03-30] MEDS ORDERED: IV RINGERS,LACTATED 1000ML 1,000 ML IV SCH (12:34)
--- NOTE | 2019-03-30 12:51 | NUR ---
SS following for discharge planning. SS reviewed pt chart. Pt is from home and is currently requiring oxygen. SS will continue to follow for discharge planning.
--- NOTE | 2019-03-30 14:03 | CARD ---
MR#: [id number] Date of Study: 03/30/2019 Ordering Physician: MICHELE FORTUNE, Referring Physician: MICHELE FORTUNE, Tech: Linda Stephens APPROVED REPORT EXAM: Two-dimensional and M-mode echocardiogram with Doppler and color Doppler. Other Information Quality : AverageHR: 78bpm INDICATION Non STEMI 2D DIMENSIONS RVDd3.5 (2.9-3.5cm)Left Atrium(2D)3.4 (1.6-4.0cm) IVSd1.0 (0.7-1.1cm)Aortic Root(2D)3.2 (2.0-3.7cm) LVDd4.7 (3.9-5.9cm)LVOT Diameter1.9 (1.8-2.4cm) PWd0.9 (0.7-1.1cm)LVDs2.2 (2.5-4.0cm) FS (%) 52.3 %SV85.5 ml Aortic Valve AoV Peak Ghulam.166.5cm/sAoV VTI32.7cm AO Peak GR.11.1mmHgLVOT Peak Ghulam.141.0cm/s LVOT VTI 29.30cmAO Mean GR.6mmHg REED (VMAX)1.01ca6OTI (VTI)2.63cm2 Mitral Valve MV E Nzburxsv134.0cm/sMV DECEL [id number] MV A Odsryrgx303.7cm/sMV STG10ii E/A Ratio1.1MVA (PHT)3.54cm2 TDI E/Lateral E'14.3E/Medial E'16.5 Pulmonary Valve PV Peak Qgimkzpe60.4cm/sPV Peak Grad.2mmHg Tricuspid Valve TR P. [id number]/sRAP [id number] TR Peak Gr.56hlAiPQKH37xqOa Pulmonary Vein S1 Gvlvdveu13.4cm/sD2 Whpqyoyo86.7cm/s PVa [id number] LEFT VENTRICLE The left ventricle is normal size. There is borderline concentric left ventricular hypertrophy. Apica l wall hypokinesis. Pattern suspicious forTakotsubo's cardiomyopathy. The ejection fraction is estima conchita at 50-55%. Transmitral Doppler flow pattern is Grade II-pseudonormal filling dynamics. RIGHT VENTRICLE The right ventricle is normal size. There is normal right ventricular wall thickness. The right ventr icular systolic function is normal. ATRIA The left atrium size is normal. The right atrium size is normal. The interatrial septum is intact wit h no evidence for an atrial septal defect or patent foramen ovale as noted on 2-D or Doppler imaging. AORTIC VALVE The aortic valve is not well visualized. Doppler and Color Flow revealed no significant aortic regurg itation. There is no significant aortic valvular stenosis. MITRAL VALVE The mitral valve is normal in structure and function. There is no evidence of mitral valve prolapse. There is no mitral valve stenosis. Doppler and Color-flow revealed trace mitral regurgitation. TRICUSPID VALVE The tricuspid valve is normal in structure and function. Doppler and Color Flow revealed trace to mil d tricuspid regurgitation with an estimated PAP of 47 mmHg. There is no tricuspid valve stenosis. PULMONIC VALVE The pulmonic valve is not well visualized. Doppler and Color Flow revealed no pulmonic valvular regur gitation. GREAT VESSELS The aortic root is normal in size. The IVC is normal in size and collapses >50% with inspiration. PERICARDIAL EFFUSION There is no evidence of significant pericardial effusion. Critical Notification Critical Value: No <Conclusion> Apical wall hypokinesis. Pattern suspicious forTakotsubo's cardiomyopathy. The ejection fraction is estimated at 50-55%. Trace mitral regurgitation. Trace to mild tricuspid regurgitation with an estimated PAP of 47 mmHg. There is no evidence of significant pericardial effusion. Signed by : Charles Mayo, Electronically Approved : 03/30/2019 14:03:29
[2019-03-30] MEDS: CYANOCOBALAMIN (VITAMIN B-12) 1,000 MCG/ML VIAL IM SCH (14:34)
[2019-03-30 15:11] LABS: BASO # 0.1 x10^3/uL (0.0-0.2); BASO % 1 % (0-3); EOS # 0.2 x10^3/uL (0.0-0.7); EOS % 3 % (0-3); HEMATOCRIT 27.9 % (36.0-47.0); HEMOGLOBIN 9.3 g/dL (12.0-15.5); LYMPH # 2.2 x10^3/uL (1.0-4.8); LYMPH % 39 % (24-48); MEAN CORPUSCULAR HEMOGLOBIN 32 pg (25-35); MEAN CORPUSCULAR HGB CONC 33 g/dL (31-37); MEAN CORPUSCULAR VOLUME 96 fL (79-100); MONO # 0.3 x10^3/uL (0.0-1.1); MONO % 6 % (0-9); NEUT % 52 % (31-73); PLATELET COUNT 187 x10^3/uL (140-400); RED CELL DISTRIBUTION WIDTH 13.1 % (11.5-14.5); WHITE BLOOD COUNT 5.8 x10^3/uL (4.0-11.0)
--- NOTE | 2019-03-30 16:29 | PDOC ---
PROGRESS NOTES Chief Complaint Chief Complaint acute blood loss anemia upper GI bleed w Melanotic stool - concerning with elevated BUN and abdominal pain she may have an occult UGIB, consulted GI. NPO, IV protonix GTT. ICU admit. Hold blood thinners NSTEMI, Elevated troponin - unable to treat due to bleeding Hypothyroidism - acquired, on 75mcg levothyroxine HTN - cont meds Right breast cancer 2011 - in remission History of Present Illness History of Present Illness feels improved some weakness no pain Vitals Vitals Vital Signs Date Time Temp Pulse Resp B/P (MAP) Pulse Ox O2 Delivery O2 Flow Rate FiO2 03/30/19 14:30 98.1 80 18 102/58 (73) 95 Nasal Cannula 1.0 98.1 Physical Exam General: Alert, Oriented X3, Cooperative, No acute distress Abdomen: Normal bowel sounds, Soft, No hepatosplenomegaly, No masses, Other (epigastric and suprapubic tenderness) Extremities: No clubbing, No cyanosis, No edema, Normal pulses, No tenderness/swelling Skin: No rashes, No breakdown, No significant lesion Labs LABS Laboratory Tests Test 03/29/19 18:45 03/30/19 00:40 03/30/19 09:05 03/30/19 15:00 Troponin I Quantitative 3.206 ng/mL (0.000-0.055) Heparin Anti-Xa Act, Unfractionated 0.35 IU/mL (0.30-0.70) 0.17 IU/mL (0.30-0.70) White Blood Count 6.0 x10^3/uL (4.0-11.0) 5.8 x10^3/uL (4.0-11.0) Red Blood Count 3.10 x10^6/uL (3.50-5.40) 2.90 x10^6/uL (3.50-5.40) Hemoglobin 9.9 g/dL (12.0-15.5) 9.3 g/dL (12.0-15.5) Hematocrit 29.7 % (36.0-47.0) 27.9 % (36.0-47.0) Mean Corpuscular Volume 96 fL (79-100) 96 fL (79-100) Mean Corpuscular Hemoglobin 32 pg (25-35) 32 pg (25-35) Mean Corpuscular Hemoglobin Concent 33 g/dL (31-37) 33 g/dL (31-37) Red Cell Distribution Width 12.9 % (11.5-14.5) 13.1 % (11.5-14.5) Platelet Count 192 x10^3/uL (140-400) 187 x10^3/uL (140-400) Iron Level 61 ug/dL (50-170) Total Iron Binding Capacity 264 ug/dL (250-450) Iron Saturation 23 % (15-34) Vitamin B12 Level 162 pg/mL (247-911) Neutrophils (%) (Auto) 52 % (31-73) Lymphocytes (%) (Auto) 39 % (24-48) Monocytes (%) (Auto) 6 % (0-9) Eosinophils (%) (Auto) 3 % (0-3) Basophils (%) (Auto) 1 % (0-3) Neutrophils # (Auto) 3.0 x10^3/uL (1.8-7.7) Lymphocytes # (Auto) 2.2 x10^3/uL (1.0-4.8) Monocytes # (Auto) 0.3 x10^3/uL (0.0-1.1) Eosinophils # (Auto) 0.2 x10^3/uL (0.0-0.7) Basophils # (Auto) 0.1 x10^3/uL (0.0-0.2) Assessment and Plan Assessmemt and Plan Problems Medical Problems: (1) GI bleed Status: Acute (2) NSTEMI (non-ST elevated myocardial infarction) Status: Acute Comment Review of Relevant I have reviewed the following items riya (where applicable) has been applied. Labs Laboratory Tests Test 03/29/19 10:27 03/29/19 10:35 03/29/19 11:52 03/29/19 15:30 White Blood Count 9.1 x10^3/uL (4.0-11.0) Red Blood Count 4.07 x10^6/uL (3.50-5.40) Hemoglobin 12.9 g/dL (12.0-15.5) Hematocrit 38.6 % (36.0-47.0) Mean Corpuscular Volume 95 fL (79-100) Mean Corpuscular Hemoglobin 32 pg (25-35) Mean Corpuscular Hemoglobin Concent 33 g/dL (31-37) Red Cell Distribution Width 12.9 % (11.5-14.5) Platelet Count 245 x10^3/uL (140-400) Neutrophils (%) (Auto) 75 % (31-73) Lymphocytes (%) (Auto) 16 % (24-48) Monocytes (%) (Auto) 6 % (0-9) Eosinophils (%) (Auto) 2 % (0-3) Basophils (%) (Auto) 1 % (0-3) Neutrophils # (Auto) 6.9 x10^3/uL (1.8-7.7) Lymphocytes # (Auto) 1.5 x10^3/uL (1.0-4.8) Monocytes # (Auto) 0.6 x10^3/uL (0.0-1.1) Eosinophils # (Auto) 0.1 x10^3/uL (0.0-0.7) Basophils # (Auto) 0.1 x10^3/uL (0.0-0.2) Sodium Level 137 mmol/L (136-145) Potassium Level 4.7 mmol/L (3.5-5.1) Chloride Level 101 mmol/L (98-107) Carbon Dioxide Level 28 mmol/L (21-32) Anion Gap 8 (6-14) Blood Urea Nitrogen 46 mg/dL (7-20) Creatinine 0.9 mg/dL (0.6-1.0) Estimated GFR (Cockcroft-Gault) 62.3 BUN/Creatinine Ratio 51 (6-20) Glucose Level 98 mg/dL (70-99) Calcium Level 9.0 mg/dL (8.5-10.1) Total Bilirubin 0.6 mg/dL (0.2-1.0) Aspartate Amino Transf (AST/SGOT) 20 U/L (15-37) Alanine Aminotransferase (ALT/SGPT) 21 U/L (14-59) Alkaline Phosphatase 66 U/L (46-116) Troponin I Quantitative 0.346 ng/mL (0.000-0.055) 1.881 ng/mL (0.000-0.055) Total Protein 6.8 g/dL (6.4-8.2) Albumin 3.9 g/dL (3.4-5.0) Albumin/Globulin Ratio 1.3 (1.0-1.7) Lipase 136 U/L (73-393) Urine Collection Type Unknown Urine Color Yellow Urine Clarity Clear Urine pH 6.0 Urine Specific [place] 1.020 Urine Protein Negative mg/dL (NEG-TRACE) Urine Glucose (UA) Negative mg/dL (NEG) Urine Ketones (Stick) Negative mg/dL (NEG) Urine Blood Negative (NEG) Urine Nitrite Negative (NEG) Urine Bilirubin Negative (NEG) Urine Urobilinogen Dipstick 0.2 mg/dL (0.2 mg/dL) Urine Leukocyte Esterase Trace (NEG) Urine RBC 1-2 /HPF (0-2) Urine WBC 1-4 /HPF (0-4) Urine Squamous Epithelial Cells Many /LPF Urine Bacteria Many /HPF (0-FEW) Urine Hyaline Casts Moderate /HPF Urine Mucus Mod /LPF Stool Occult Blood Positive (NEG) Test 03/29/19 18:45 03/30/19 00:40 03/30/19 09:05 03/30/19 15:00 Troponin I Quantitative 3.206 ng/mL (0.000-0.055) Heparin Anti-Xa Act, Unfractionated 0.35 IU/mL (0.30-0.70) 0.17 IU/mL (0.30-0.70) White Blood Count 6.0 x10^3/uL (4.0-11.0) 5.8 x10^3/uL (4.0-11.0) Red Blood Count 3.10 x10^6/uL (3.50-5.40) 2.90 x10^6/uL (3.50-5.40) Hemoglobin 9.9 g/dL (12.0-15.5) 9.3 g/dL (12.0-15.5) Hematocrit 29.7 % (36.0-47.0) 27.9 % (36.0-47.0) Mean Corpuscular Volume 96 fL (79-100) 96 fL (79-100) Mean Corpuscular Hemoglobin 32 pg (25-35) 32 pg (25-35) Mean Corpuscular Hemoglobin Concent 33 g/dL (31-37) 33 g/dL (31-37) Red Cell Distribution Width 12.9 % (11.5-14.5) 13.1 % (11.5-14.5) Platelet Count 192 x10^3/uL (140-400) 187 x10^3/uL (140-400) Iron Level 61 ug/dL (50-170) Total Iron Binding Capacity 264 ug/dL (250-450) Iron Saturation 23 % (15-34) Vitamin B12 Level 162 pg/mL (247-911) Neutrophils (%) (Auto) 52 % (31-73) Lymphocytes (%) (Auto) 39 % (24-48) Monocytes (%) (Auto) 6 % (0-9) Eosinophils (%) (Auto) 3 % (0-3) Basophils (%) (Auto) 1 % (0-3) Neutrophils # (Auto) 3.0 x10^3/uL (1.8-7.7) Lymphocytes # (Auto) 2.2 x10^3/uL (1.0-4.8) Monocytes # (Auto) 0.3 x10^3/uL (0.0-1.1) Eosinophils # (Auto) 0.2 x10^3/uL (0.0-0.7) Basophils # (Auto) 0.1 x10^3/uL (0.0-0.2) Laboratory Tests Test 03/29/19 18:45 03/30/19 00:40 03/30/19 09:05 03/30/19 15:00 Troponin I Quantitative 3.206 ng/mL (0.000-0.055) Heparin Anti-Xa Act, Unfractionated 0.35 IU/mL (0.30-0.70) 0.17 IU/mL (0.30-0.70) White Blood Count 6.0 x10^3/uL (4.0-11.0) 5.8 x10^3/uL (4.0-11.0) Red Blood Count 3.10 x10^6/uL (3.50-5.40) 2.90 x10^6/uL (3.50-5.40) Hemoglobin 9.9 g/dL (12.0-15.5) 9.3 g/dL (12.0-15.5) Hematocrit 29.7 % (36.0-47.0) 27.9 % (36.0-47.0) Mean Corpuscular Volume 96 fL (79-100) 96 fL (79-100) Mean Corpuscular Hemoglobin 32 pg (25-35) 32 pg (25-35) Mean Corpuscular Hemoglobin Concent 33 g/dL (31-37) 33 g/dL (31-37) Red Cell Distribution Width 12.9 % (11.5-14.5) 13.1 % (11.5-14.5) Platelet Count 192 x10^3/uL (140-400) 187 x10^3/uL (140-400) Iron Level 61 ug/dL (50-170) Total Iron Binding Capacity 264 ug/dL (250-450) Iron Saturation 23 % (15-34) Vitamin B12 Level 162 pg/mL (247-911) Neutrophils (%) (Auto) 52 % (31-73) Lymphocytes (%) (Auto) 39 % (24-48) Monocytes (%) (Auto) 6 % (0-9) Eosinophils (%) (Auto) 3 % (0-3) Basophils (%) (Auto) 1 % (0-3) Neutrophils # (Auto) 3.0 x10^3/uL (1.8-7.7) Lymphocytes # (Auto) 2.2 x10^3/uL (1.0-4.8) Monocytes # (Auto) 0.3 x10^3/uL (0.0-1.1) Eosinophils # (Auto) 0.2 x10^3/uL (0.0-0.7) Basophils # (Auto) 0.1 x10^3/uL (0.0-0.2) Medications Current Medications Acetaminophen (Tylenol) 1,000 mg 1X ONCE PO Last administered on 03/29/19at 10:12; Start 03/29/19 at 09:45; Stop 03/29/19 at 09:52; Status DC Ondansetron HCl (Zofran) 4 mg 1X ONCE IV Last administered on 03/29/19at 10:12; Start 03/29/19 at 09:45; Stop 03/29/19 at 09:52; Status DC Pantoprazole Sodium 80 mg/ Sodium Chloride 100 ml @ 10 mls/hr Q10H IV Last administered on 03/30/19at 07:50; Start 03/29/19 at 12:00 Pantoprazole Sodium (PROTONIX VIAL for IV PUSH) 40 mg 1X ONCE IVP Last administered on 03/29/19at 12:00; Start 03/29/19 at 12:00; Stop 03/29/19 at 12:01; Status DC Sodium Chloride 1,000 ml @ 1,000 mls/hr 1X ONCE IV Last administered on 03/29/19at 12:00; Start 03/29/19 at 12:00; Stop 03/29/19 at 12:59; Status DC Iohexol (Omnipaque 350 Mg/ml) 90 ml 1X ONCE IV Last administered on 03/29/19at 12:37; Start 03/29/19 at 12:15; Stop 03/29/19 at 12:16; Status DC Info (CONTRAST GIVEN -- Rx MONITORING) 1 each PRN DAILY PRN MC SEE COMMENTS; Start 03/29/19 at 12:15; Stop 03/31/19 at 12:14 Fentanyl Citrate (Fentanyl 2ml Vial) 50 mcg PRN Q1HR PRN IV PAIN; Start 03/29/19 at 12:30; Stop 03/30/19 at 12:29; Status DC Sodium Chloride 1,000 ml @ 75 mls/hr [id number] IV Last administered on 03/30/19at 05:00; Start 03/29/19 at 12:29; Stop 03/30/19 at 12:28; Status DC Levothyroxine Sodium (Synthroid) 75 mcg DAILYAC PO Last administered on 03/30/19at 06:30; Start 03/30/19 at 07:30 Simvastatin (Zocor) 20 mg HS PO Last administered on 03/29/19at 21:42; Start 03/29/19 at 21:00 Cetirizine HCl (ZyrTEC) 10 mg DAILY PO Last administered on 03/30/19at 12:25; Start 03/30/19 at 09:00 Losartan Potassium (Cozaar) 50 mg DAILY PO ; Start 03/30/19 at 09:00 Sertraline HCl (Zoloft) 100 mg DAILY PO Last administered on 03/30/19at 12:25; Start 03/30/19 at 09:00 Morphine Sulfate (Morphine Sulfate) 2 mg PRN Q2HR PRN IV PAIN Last administered on 03/29/19at 15:22; Start 03/29/19 at 15:00 Ondansetron HCl (Zofran) 4 mg PRN Q6HRS PRN IVP NAUSEA/VOMITING; Start 03/29/19 at 15:00 Hydrochlorothiazide (Microzide) 12.5 mg DAILY PO ; Start 03/30/19 at 09:00 Heparin Sodium/ Dextrose 500 ml @ 0 mls/hr CONT PRN IV CHEST PAIN Last administered on 03/29/19at 18:21; Start 03/29/19 at 16:30; Stop 03/30/19 at 11 :37; Status DC Heparin Sodium (Porcine) (Heparin Sodium) 1,850 unit PRN Q6HRS PRN IV FOR UFH LEVEL LESS THAN 0.2 Last administered on 03/30/19at 10:11; Start 03/29/19 at 16:30; Stop 03/30/19 at 11:37; Status DC Info (Anti-Coagulation Monitoring By Pharmacy) 1 each PRN DAILY PRN MC SEE COMMENTS; Start 03/29/19 at 16:30 Hydralazine HCl (Apresoline Inj) 10 mg PRN Q4HRS PRN IVP ELEVATED BP, SEE COMMENTS; Start 03/29/19 at 16:30 Metoprolol Tartrate (Lopressor) 12.5 mg Q6HRS PO Last administered on 03/11 06/28at 06:27; Start 03/29/19 at 18:00 Heparin Sodium (Porcine) (Heparin Sodium) 4,000 unit 1X ONCE IV Last administered on 03/29/19at 18:15; Start 03/29/19 at 17:45; Stop 03/29/19 at 17:46; Status DC Cyanocobalamin (Vitamin B-12) 1,000 mcg DAILY IM Last administered on 03/30/19at 14:34; Start 03/30/19 at 13:00 Ringer's Solution 1,000 ml @ 50 mls/hr Q20H IV ; Start 03/30/19 at 12:34; Stop 03/31/19 at 00:33 Active Scripts Active Reported Simvastatin 20 Mg Tablet 20 Mg PO HS Zoloft (Sertraline Hcl) 100 Mg Tablet 100 Mg PO DAILY Naproxen 500 Mg Tablet.dr 500 Mg PO BID Losartan-Hctz 50-12.5 Mg Tab (Losartan/Hydrochlorothiazide) 1 Each Tablet 1 Each PO DAILY Loratadine 10 Mg Tablet 10 Mg PO DAILY Levothyroxine Sodium 75 Mcg Tablet 75 Mcg PO DAILYAC Vitals/I & O Vital Sign - Last 24 Hours 03/29/19 03/29/19 03/29/19 03/29/19 18:13 19:15 19:50 23:28 Temp 98.4 98.6 98.4 98.6 Pulse 109 87 80 Resp 20 20 B/P (MAP) 115/64 100/50 (67) 83/54 (64) Pulse Ox 98 96 O2 Delivery Nasal Cannula Nasal Cannula Nasal Cannula O2 Flow Rate 2.0 2.0 2.0 03/30/19 03/30/19 03/30/19 03/30/19 00:21 02:34 06:27 07:24 Temp 98.7 97.9 98.7 97.9 Pulse 81 77 79 73 Resp 20 18 B/P (MAP) 101/53 82/47 (59) 93/52 103/64 (77) Pulse Ox 92 97 O2 Delivery Nasal Cannula Nasal Cannula O2 Flow Rate 2.0 2.0 03/30/19 03/30/19 03/30/19 03/30/19 08:00 09:00 11:04 12:00 Temp 98.0 98.0 Pulse 80 75 80 Resp 16 B/P (MAP) 102/58 97/59 (72) 102/58 Pulse Ox 94 O2 Delivery Nasal Cannula Room Air O2 Flow Rate 1.0 03/30/19 14:30 Temp 98.1 98.1 Pulse 80 Resp 18 B/P (MAP) 102/58 (73) Pulse Ox 95 O2 Delivery Nasal Cannula O2 Flow Rate 1.0 Intake and Output 03/29/19 03/29/19 03/30/19 15:00 23:00 07:00 Intake Total 720.4 ml Balance 720.4 ml CARISSA CASTELLANO MD Mar 30, 2019 16:29
[2019-03-30] MEDS ORDERED: PROPOFOL 20 ML IV ONE (17:10)
--- NOTE | 2019-03-30 17:36 | PDOC4 ---
Operative Note Operative Note EGD with biopsies Meds propofol per anesthesia Pre-op dx melena/acute blood loss anemia post-op dx gastric ulcer antrum with clean base s/p bx Plan PPI therapy for two months serial CBCs hold aspirin for 48 hour and then resume if needed Avoid NSAIDs DANIAL TANNER MD Mar 30, 2019 17:36
[2019-03-30] MEDS: SIMVASTATIN 20 MG TABLET PO SCH (19:51)
[2019-03-31] MEDS: METOPROLOL TART IMMED RELEASE 25 MG TABLET. PO SCH ×4 (00:57→16:07)
[2019-03-31 02:50] VITALS: BP 107/60
[2019-03-31 07:00] VITALS: BP 113/60
[2019-03-31 07:29] LABS: BASO # 0.1 x10^3/uL (0.0-0.2); BASO % 1 % (0-3); EOS # 0.2 x10^3/uL (0.0-0.7); EOS % 3 % (0-3); HEMATOCRIT 27.5 % (36.0-47.0); HEMOGLOBIN 9.3 g/dL (12.0-15.5); LYMPH # 2.1 x10^3/uL (1.0-4.8); LYMPH % 29 % (24-48); MEAN CORPUSCULAR HEMOGLOBIN 32 pg (25-35); MEAN CORPUSCULAR HGB CONC 34 g/dL (31-37); MEAN CORPUSCULAR VOLUME 96 fL (79-100); MONO # 0.5 x10^3/uL (0.0-1.1); MONO % 7 % (0-9); NEUT # 4.4 x10^3/uL (1.8-7.7); NEUT % 61 % (31-73); PLATELET COUNT 185 x10^3/uL (140-400); RED BLOOD COUNT 2.87 x10^6/uL (3.50-5.40); RED CELL DISTRIBUTION WIDTH 12.9 % (11.5-14.5); WHITE BLOOD COUNT 7.3 x10^3/uL (4.0-11.0)
[2019-03-31] MEDS ORDERED: PANTOPRAZOLE IV PUSH 40 MG VIAL. IVP SCH ×2 (07:30→09:00)
[2019-03-31 07:40] LABS: ALBUMIN 2.9 g/dL (3.4-5.0); ALBUMIN/GLOBULIN RATIO 1.1 (1.0-1.7); CALCIUM 8.1 mg/dL (8.5-10.1); CREATININE 0.7 mg/dL (0.6-1.0); GFR 83.2; POTASSIUM 3.4 mmol/L (3.5-5.1); TOTAL BILIRUBIN 0.4 mg/dL (0.2-1.0); TOTAL PROTEIN 5.5 g/dL (6.4-8.2)
[2019-03-31] MEDS: CYANOCOBALAMIN (VITAMIN B-12) 1,000 MCG/ML VIAL IM SCH (08:36)
[2019-03-31] MEDS: CETIRIZINE HCL 10 MG TABLET. PO SCH (08:37)
[2019-03-31] MEDS: LEVOTHYROXINE 75 MCG TABLET PO SCH (08:37)
[2019-03-31] MEDS: LOSARTAN POTASSIUM 50 MG TABLET. PO SCH (08:37)
[2019-03-31] MEDS: SERTRALINE 50 MG TABLET. PO SCH (08:37)
[2019-03-31 11:01] VITALS: BP 107/60
--- NOTE | 2019-03-31 12:29 | PDOC ---
JEZ IYER SPORTS NUTRITIONIST 03/31/19 1229: CARDIO Progress Notes Date and Time Date of Service 03/31/2019 Time of Evaluation 1220 Subjective Subjective: No Chest Pain, No shortness of breath, No Palpitations, Other (better but still having some epigastric tenderness) Vitals Vitals Vital Signs Date Time Temp Pulse Resp B/P (MAP) Pulse Ox O2 Delivery O2 Flow Rate FiO2 03/31/19 11:01 98.5 64 18 107/60 (76) 94 Nasal Cannula 2.0 98.5 Weight Weight [ ] Input and Output Intake and Output Intake and Output 03/31/19 07:00 Intake Total 900 ml Output Total 1600 ml Balance -700 ml Intake Oral 500 ml IV Total 400 ml Output Urine Total 1600 ml Laboratory Labs Laboratory Tests Test 03/30/19 15:00 03/31/19 06:05 White Blood Count 5.8 x10^3/uL (4.0-11.0) 7.3 x10^3/uL (4.0-11.0) Red Blood Count 2.90 x10^6/uL (3.50-5.40) 2.87 x10^6/uL (3.50-5.40) Hemoglobin 9.3 g/dL (12.0-15.5) 9.3 g/dL (12.0-15.5) Hematocrit 27.9 % (36.0-47.0) 27.5 % (36.0-47.0) Mean Corpuscular Volume 96 fL (79-100) 96 fL (79-100) Mean Corpuscular Hemoglobin 32 pg (25-35) 32 pg (25-35) Mean Corpuscular Hemoglobin Concent 33 g/dL (31-37) 34 g/dL (31-37) Red Cell Distribution Width 13.1 % (11.5-14.5) 12.9 % (11.5-14.5) Platelet Count 187 x10^3/uL (140-400) 185 x10^3/uL (140-400) Neutrophils (%) (Auto) 52 % (31-73) 61 % (31-73) Lymphocytes (%) (Auto) 39 % (24-48) 29 % (24-48) Monocytes (%) (Auto) 6 % (0-9) 7 % (0-9) Eosinophils (%) (Auto) 3 % (0-3) 3 % (0-3) Basophils (%) (Auto) 1 % (0-3) 1 % (0-3) Neutrophils # (Auto) 3.0 x10^3/uL (1.8-7.7) 4.4 x10^3/uL (1.8-7.7) Lymphocytes # (Auto) 2.2 x10^3/uL (1.0-4.8) 2.1 x10^3/uL (1.0-4.8) Monocytes # (Auto) 0.3 x10^3/uL (0.0-1.1) 0.5 x10^3/uL (0.0-1.1) Eosinophils # (Auto) 0.2 x10^3/uL (0.0-0.7) 0.2 x10^3/uL (0.0-0.7) Basophils # (Auto) 0.1 x10^3/uL (0.0-0.2) 0.1 x10^3/uL (0.0-0.2) Sodium Level 142 mmol/L (136-145) Potassium Level 3.4 mmol/L (3.5-5.1) Chloride Level 108 mmol/L (98-107) Carbon Dioxide Level 27 mmol/L (21-32) Anion Gap 7 (6-14) Blood Urea Nitrogen 9 mg/dL (7-20) Creatinine 0.7 mg/dL (0.6-1.0) Estimated GFR (Cockcroft-Gault) 83.2 BUN/Creatinine Ratio 13 (6-20) Glucose Level 101 mg/dL (70-99) Calcium Level 8.1 mg/dL (8.5-10.1) Total Bilirubin 0.4 mg/dL (0.2-1.0) Aspartate Amino Transf (AST/SGOT) 20 U/L (15-37) Alanine Aminotransferase (ALT/SGPT) 20 U/L (14-59) Alkaline Phosphatase 45 U/L (46-116) Total Protein 5.5 g/dL (6.4-8.2) Albumin 2.9 g/dL (3.4-5.0) Albumin/Globulin Ratio 1.1 (1.0-1.7) Physical Exam HEENT: Neck Supple W Full Motion Chest: Symmetric LUNGS: Clear to Auscultation Heart: S1S2, RRR (SR), no gallops Abdomen: Soft N/T, Other Extremities: No Calf Tenderness Neurology: alert, oriented, follow commands Assessment Assessment 1. Anemia with PUD: EGD noted with 2. NSTEMI: peaked at 3.1, possibly type 2 with WM compatible with Takotsubo. EF preserved at 50-55% 3. HTN: currently at low end 4. Tobaccoism 5. Hx of breast CA Recommendations 1. Follow GI recommendations 2. Unable to use antiplatelets at this time due to GI bleed/PUD. ECASA 81 mg when clear with GI 3. Agree with ARB/BB/statin. Check lipids. 4. Agree with ACEi and BB. May DC HCTZ 5. Follow up in office. Future stress test. 6. Smoking cessation MICHELE FORTUNE MD 03/31/19 1736: CARDIO Progress Notes Plan Plan Patient seen and examined. Agree with above nurse practitioner note. She reports that she had a stress test last year which was unremarkable. We will have her follow-up at the office in 2 months or so and if she is otherwise unremarkable with respect to her symptoms we will defer any further testing otherwise could consider repeat cardiac stress testing. JEZ IYER APRN Mar 31, 2019 12:29 MICHELE FORTUNE MD Mar 31, 2019 16:36
[2019-03-31] MEDS ORDERED: PANT20TA2 PO (12:37)
[2019-03-31] MEDS ORDERED: METO25TA4 PO (12:37)
[2019-03-31] MEDS ORDERED: POTASSIUM CHLORIDE 20 MEQ TABLET.ER. PO ONE (13:00)
--- NOTE | 2019-03-31 13:02 | PDOC ---
Subjective: Subjective: Tolerating clears, no melena. Objective: Objective: D/w nurse, cardiology, hospitalist. Vital Signs: Vital Signs Date Time Temp Pulse Resp B/P (MAP) Pulse Ox O2 Delivery O2 Flow Rate FiO2 03/31/19 11:01 98.5 64 18 107/60 (76) 94 Nasal Cannula 2.0 98.5 Labs: Laboratory Tests Test 03/30/19 15:00 03/31/19 06:05 White Blood Count 5.8 x10^3/uL 7.3 x10^3/uL Red Blood Count 2.90 x10^6/uL 2.87 x10^6/uL Hemoglobin 9.3 g/dL 9.3 g/dL Hematocrit 27.9 % 27.5 % Mean Corpuscular Volume 96 fL 96 fL Mean Corpuscular Hemoglobin 32 pg 32 pg Mean Corpuscular Hemoglobin Concent 33 g/dL 34 g/dL Red Cell Distribution Width 13.1 % 12.9 % Platelet Count 187 x10^3/uL 185 x10^3/uL Neutrophils (%) (Auto) 52 % 61 % Lymphocytes (%) (Auto) 39 % 29 % Monocytes (%) (Auto) 6 % 7 % Eosinophils (%) (Auto) 3 % 3 % Basophils (%) (Auto) 1 % 1 % Neutrophils # (Auto) 3.0 x10^3/uL 4.4 x10^3/uL Lymphocytes # (Auto) 2.2 x10^3/uL 2.1 x10^3/uL Monocytes # (Auto) 0.3 x10^3/uL 0.5 x10^3/uL Eosinophils # (Auto) 0.2 x10^3/uL 0.2 x10^3/uL Basophils # (Auto) 0.1 x10^3/uL 0.1 x10^3/uL Sodium Level 142 mmol/L Potassium Level 3.4 mmol/L Chloride Level 108 mmol/L Carbon Dioxide Level 27 mmol/L Anion Gap 7 Blood Urea Nitrogen 9 mg/dL Creatinine 0.7 mg/dL Estimated GFR (Cockcroft-Gault) 83.2 BUN/Creatinine Ratio 13 Glucose Level 101 mg/dL Calcium Level 8.1 mg/dL Total Bilirubin 0.4 mg/dL Aspartate Amino Transf (AST/SGOT) 20 U/L Alanine Aminotransferase (ALT/SGPT) 20 U/L Alkaline Phosphatase 45 U/L Total Protein 5.5 g/dL Albumin 2.9 g/dL Albumin/Globulin Ratio 1.1 C Imaging: EGD 03/30 gastric ulcer antrum with clean base s/p bx Plan PPI therapy for two months serial CBCs hold aspirin for 48 hour and then resume if needed Avoid NSAIDs PE: GEN: NAD LUNGS: CTAB HEART: RRR ABD: NABS, S/ND/NT NEURO/PSYCH: A & O 3 A/P: Gastric ulcer B12 deficiency -- Wait 48 hrs before starting ASA if needed per cardiology. DC per primary on PPI and B12. Follow-up for EGD in 2-3 months to confirm healing - consider colonoscopy at that time for screening. Our office will contact to schedule. Avoid NSAIDs - defer to primary re: chronic knee/hip pain. Follow-up w/ cardiology as planned. MIKY MONTES Mar 31, 2019 13:02
[2019-03-31 13:14] LABS: CHOLESTEROL/HDL RATIO 4.6
[2019-03-31 14:43] VITALS: BP 105/62
[2019-03-31 16:07] VITALS: BP 105/62
--- NOTE | 2019-03-31 16:39 | NUR ---
Discharge Note: TATIANNA DESHPANDE S [address] [place] [address] Discharge instructions and discharge home medications reviewed with Patient and a copy given. All questions have been answered and understanding verbalized. The following instructions and handouts were given: GI bleed Discontinued IV line Patient discharged to home with self care via wheelchair
[2019-04-01] MEDS ORDERED: PANTOPRAZOLE 40 MG TABLET.DR. PO SCH (07:30)
--- NOTE | 2019-04-01 15:07 | PATHOLOGY ---
[facility] Accession Number: [id number] . 01 Material submitted: . stomach - GASTRIC ULCER . 01 Clinical history: . GI bleed . 02 Diagnosis: Gastric antral mucosa, gastric ulcer biopsy: - Edema, congestion, and slight acute and chronic inflammation, and small segment of inflammatory exudate consistent with ulcer. (JPM:kelly; 04/01/2019) QMS 04/01/2019 1008 Local . 02 Comment: Sections of the gastric ulcer biopsy reveal a segment of gastric antral mucosa showing edema, congestion, and slight acute and chronic inflammation. There is a small segment of inflammatory exudate consistent with ulcer. A properly controlled immunoperoxidase stain for Helicobacter is negative for Helicobacter organisms. There is no evidence of malignancy. (JPM:kelly; 04/01/2019) . . Special stain performed: Immunoperoxidase stain for Helicobacter. . 02 Electronically signed: . Ronan Godinez MD, Pathologist NPI- [id number] . 01 Gross description: . Received in formalin labeled "Robert, Demetria, gastric ulcer," is a single segment of morrison soft tissue measuring 0.4 cm in maximum dimension. The specimen is entirely submitted in cassette A1. (TSD; 03/31/2019) TOB/TOB 03/31/2019 1650 Local . 02 Pathologist provided ICD-10: K29.00, K29.50, K25.9 . 02 CPT . 221813, [id number] Specimen Comment: A courtesy copy of this report has been sent to Specimen Comment: [phone], , . Specimen Comment: Report sent to ,DR RIVERA / DR DELUNA Performed at: 01 [facility] [address], [place], [place] [id number] MD Viral Mora MD Phone: [phone] Performed at: 02 [facility] [address] [place], [place] [id number] MD Ronan Godinez MD Phone: [phone]
== END 2019-03-31 16:42 | disposition home or self-care (01) | DRG 377 ==
LOC: ER 08:57 → 1 WEST ICU 10:34 → 2 SOUTH 03-30 07:16
PROVIDERS: ADMIT Internal Medicine; ATTEND Internal Medicine
PROC: 0DB68ZX Excision of Stomach, Via Natural or Artificial Opening Endoscopic, Diagnostic (ICD-10-PCS; principal; 2019-03-30 17:00)
DX: K25.4 Chronic or unspecified gastric ulcer with hemorrhage (principal); I21.4 Non-ST elevation (NSTEMI) myocardial infarction; D62 Acute posthemorrhagic anemia; E03.9 Hypothyroidism, unspecified; E53.8 Deficiency of other specified B group vitamins; F17.200 Nicotine dependence, unspecified, uncomplicated; I10 Essential (primary) hypertension; K21.9 Gastro-esophageal reflux disease without esophagitis; K64.9 Unspecified hemorrhoids; K57.30 Diverticulosis of large intestine without perforation or abscess without bleeding; N19 Unspecified kidney failure; E78.5 Hyperlipidemia, unspecified; Z79.82 Long term (current) use of aspirin; Z82.49 Family history of ischemic heart disease and other diseases of the circulatory system; Z85.3 Personal history of malignant neoplasm of breast; Z87.19 Personal history of other diseases of the digestive system; Z90.710 Acquired absence of both cervix and uterus; Z96.641 Presence of right artificial hip joint; Z96.659 Presence of unspecified artificial knee joint; Z88.1 Allergy status to other antibiotic agents; Z88.8 Allergy status to other drugs, medicaments and biological substances; Z98.51 Tubal ligation status; Z71.6 Tobacco abuse counseling
CPT/HCPCS: 36415; 43239; 71275; 74177; 80053; 80061; 81001; 82274; 82607; 83540; 83550; 83690; 84484; 85025; 85027; 85520; 86850; 86900; 86901; 87086; 88305; 88342; 93005; 93306; 96361; 96374; 96375; C9113; J1644; J2270; J2405; J2704; J3420; J7030; Q9967; 99285-25; G0378